=== PATIENT | male | born 1985 | race Caucasian/White ===

== ENCOUNTER 2021-04-24 14:09 | Outpatient (CLI) | payer MEDICARE, SELFPAY ==
--- NOTE | 2021-04-24 14:17 | CT_ITS ---
WS: [id number] CT CHEST WITH INTRAVENOUS CONTRAST HISTORY: MEDIASTINITIS,MEDIASTINAL MASS TECHNIQUE: Contiguous 5 mm axial imaging performed on the thorax. Coronal and sagittal reformats are submitted. All CT scans at [facility] use at least one of these dose optimization techniques: automated exposure control; mA and/or kV adjustment per patient size (includes targeted exams where dose is matched to clinical indication); or iterative reconstruction. CONTRAST: Omnipaque 300; 95 mL IV. DLP: 655.99 mGy.cm COMPARISON: 01/31/2019, 01/29/2018 Lungs and central airway: Lung volumes are decreased due to poor inspiration resulting in crowding of the lung markings. There are a few scattered granulomata. Again noted is a slightly lobulated nodule in the medial RIGHT upper lobe measuring 9.5 mm on today's examination. This nodule has very slightl y increased in size over several prior years. The perifissural nodule on the RIGHT is reidentified bu t more difficult to visualize today due to breathing motion artifact. Not significantly changed in si ze. Pleura: Normal. No pleural effusion. Heart and pericardium: Normal size heart with no pericardial effusion. Mediastinum and janiya: Dense configuration of calcifications centered in the RIGHT suprahilar and RIGH T paratracheal location. Consistent with a conglomerate calcified lymph nodes. Very similar in appear ance and distribution without progression as compared to 01/29/2018. Vessels: Normal size aortic and pulmonary artery. No coronary artery calcifications. Chest wall and lower neck: No soft tissue masses. Upper abdomen: Negative. Osseous structures: No destructive process. CT/CT chest w con* [id number] IMPRESSION: 1. Stable densely calcified RIGHT paratracheal and suprahilar mass. Probably r elated to prior granulomatous disease. 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 2. Noncalcified 9.5 mm nodule in the RIGHT upper lobe and nodule along the RIG HT superior major fissure are stable.
[2021-04-24] MEDS: iohexol 300 mg/mL 100 mL Btl IV (14:57)
== END 2021-04-24 14:10 | disposition home or self-care (01) ==
PROVIDERS: PCP Family Medicine; Visit Provider Internal Medicine Pulmonary Disease
DX: J98.59 Other diseases of mediastinum, not elsewhere classified (principal); R91.1 Solitary pulmonary nodule
CPT/HCPCS: 71260

== ENCOUNTER → 2021-09-02 07:12 | Outpatient (BNVA) | payer MEDICARE, MEDICAID, SELFPAY | PROVIDERS: PCP Family Medicine; Visit Provider Nurse Practitioner Family | DX: N41.1 Chronic prostatitis (principal); K92.1 Melena; N20.9 Urinary calculus, unspecified | CPT/HCPCS: 51741; 51798; 81003; 87086; 99203 ==

== ENCOUNTER → 2021-09-19 09:52 | Outpatient (BNVA) | payer MEDICARE, MEDICAID, SELFPAY | PROVIDERS: PCP Family Medicine; Visit Provider Surgery | DX: K62.5 Hemorrhage of anus and rectum (principal); K21.9 Gastro-esophageal reflux disease without esophagitis; K62.89 Other specified diseases of anus and rectum | CPT/HCPCS: 99203 ==

== ENCOUNTER 2021-09-24 06:00 | Outpatient (CLI) | payer MEDICARE, MEDICAID, SELFPAY | END 2021-09-24 06:01 | disposition home or self-care (01) | LOC: LAB 12-30 21:03 | PROVIDERS: PCP Family Medicine; Visit Provider Urology | DX: N20.9 Urinary calculus, unspecified | CPT/HCPCS: 81003; 99213 ==

== ENCOUNTER → 2021-09-24 15:10 | Outpatient (BNVA) | payer MEDICARE, MEDICAID, SELFPAY | PROVIDERS: PCP Family Medicine; Visit Provider Urology | DX: N20.9 Urinary calculus, unspecified (principal); N41.1 Chronic prostatitis | CPT/HCPCS: 99213 ==

== ENCOUNTER 2021-10-04 06:45 | Day surgery (SDC) | payer MEDICARE, MEDICAID, SELFPAY ==
[2021-10-02 13:42] VITALS: BMI 28.5
[2021-10-04 07:20] VITALS: BP 136/98; PULSE 81; RESP 20; TEMP 36.8; O2SAT 95
[2021-10-04] MEDS: sodium chloride 0.9% 1,000 ML 30 ML IV (07:36)
--- NOTE | 2021-10-04 08:29 | ANES.PREANE2 ---
Pre-Anesthetic Assessment Height/Weight: Height 1.83 m Weight 95.254 kg Temp Pulse Resp BP Pulse Ox 98.3 F 81 20 H 136/98 95 10/04/21 07:20 10/04/21 07:20 10/04/21 07:20 10/04/21 07:20 10/04/21 07:20 Preop Diagnosis: epigastric pain, rectal pain Operation Date: 10/04/21 08:15 Proposed Procedures p EGD and colonoscopy 36010,10955,K92.1,K62.5,K21.9(Not Applicable) - Theodore Everett DO s Colonoscopy(Not Applicable) - Theodore Everett DO Familial anesthetic complications: Hypertension on emergence Was Beta Lashaun taken within 24 hours: N/A Was Clonidine taken within 24 hours: N/A Last intake: Intake Last Liquid Date 10/03/21 Last Liquid Time 23:30 Last Solid Date 10/02/21 Last Solid Time 22:00 Social No alcohol and No tobacco Exam alert, oriented x 3, clear to auscultation bilaterally and regular rate & rhythm Airway Submandibular: within normal limits Cervical ROM: within normal limits Mallampati: Class II Dentition: chipped Pulmonary CT 05/14 CT/CT chest w con* [id number] IMPRESSION: ? 1.? Stable densely calcified RIGHT paratracheal and suprahilar mass. Probably related to prior granulomatous disease. 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 2.? Noncalcified 9.5 mm nodule in the RIGHT upper lobe and nodule along the RIGHT superior major fissure are stable. ? ? CV/HEM Hypertension Renal stones Hepatic None reported GI Gastroesophageal Reflux Disease BRBPR Metabolic None reported Musc/skel Lower Back Pain, Osteoarthritis/DJD and None reported Neuropsych None reported Anesthetic Plan ASA status: 3 Anesthesia: Anesthesia Evaluation and MAC Other: I discussed with the patient risks, goals, and benefits of MAC and general anesthesia. We discussed spectrum of MAC anesthesia including conversion to general as well as possibility of recall of intraoperative stimuli including discomfort/pain. Patient agrees to proceed with MAC. Risk of > 500 ml blood loss (7ml/kg in children): No Medications/Allergies Home Medications Medication Instructions Recorded Confirmed Last Taken Type Rollator Walker 08/23/21 09/24/21 Unknown History alprazolam 0.5 mg tablet 0.5 mg PO BEDTIME PRN tab 08/23/21 10/02/21 10/03/21 History ascorbate calcium (vitamin C) 500 500 mg PO DAILY 08/23/21 10/02/21 10/03/21 History mg tablet budesonide 0.5 mg/2 mL suspension 0.5 mg INHALATION BID 08/23/21 10/02/21 10/03/21 History for nebulization cholecalciferol (vitamin D3) 25 25 mcg PO DAILY 08/23/21 10/02/21 10/03/21 History mcg (1,000 unit) capsule famotidine 40 mg tablet 40 mg PO DAILY 08/23/21 10/02/21 10/03/21 History ferrous sulfate 325 mg (65 mg 325 mg PO BID 08/23/21 10/02/21 10/03/21 History iron) tablet fluticasone propionate 50 1 spray INTRANASAL BID 08/23/21 10/02/21 10/02/21 History mcg/actuation nasal spray,suspension hydrocodone 5 mg-acetaminophen 325 1 tab PO BID PRN 08/23/21 10/02/21 10/03/21 History mg tablet levalbuterol tartrate 45 2 inh INHALATION Q4H g 08/23/21 10/02/21 10/03/21 History mcg/actuation aerosol inhaler loratadine 10 mg tablet (Allergy 10 mg PO DAILY 08/23/21 10/02/21 10/03/21 History Relief (loratadine)) mecobalamin (vitamin B12) 5,000 5,000 mcg PO DAILY tab 08/23/21 10/02/21 10/03/21 History mcg disintegrating tablet nystatin 100,000 unit/mL oral 5 ml PO BID ml 08/23/21 10/02/21 10/03/21 History suspension omega-3 fatty acids 500 mg capsule 500 mg PO BID 08/23/21 10/02/21 10/03/21 History ondansetron HCl 4 mg tablet 4 mg PO Q6H PRN 08/23/21 10/02/21 10/03/21 History prenat.vits,norma,nbl-nypt-ifqai 1 tab PO DAILY 08/23/21 10/02/21 10/03/21 History doxycycline hyclate 100 mg capsule 100 mg PO BID #60 cap 09/02/21 10/02/2122 Rx Allergies Allergy/AdvReac Type Severity Reaction Status Date / Time albuterol Allergy Unknown Verified 10/02/21 13:30 Current Medications Generic Name Dose Route Start Last Admin Trade Name Ryanq PRN Reason Stop Dose Admin Sodium Chloride 1,000 mls @ 30 mls/hr 10/04/21 07:00 10/04/21 07:36 Sodium Chloride 0.9% IV 10/05/21 06:59 30 mls/hr .Q24H AHMET Administration PFSH Anesthesia Medical History Chronic prostatitis Dysuria Fibrosing mediastinitis Histoplasmosis Lung mass Mediastinal mass Status post extracorporeal shock wave therapy Urolithiasis Surgical History H/O endoscopy H/O left inguinal hernia repair Means teeth extracted Family History Mother No problems noted. Father No problems noted. Social History Smoking and tobacco status: never smoked Alcohol intake: never Marital status: Current occupational status: disabled History of recent travel: No Data Anesthesia Cardiac Studies: No Data to Display
--- NOTE | 2021-10-04 08:32 | W.PM.OPSUD ---
Surgery/Procedure H&P Update DATE OF PROCEDURE: October 04, 2021 DATE H&P PERFORMED: 09/19/21 CHANGES TO PREVIOUS DOCUMENTATION: none PREOP DIAGNOSIS: epigastric pain, rectal pain PLANNED PROCEDURE: Operation Date: 10/04/21 08:15 Proposed Procedures p EGD and colonoscopy [id number],K92.1,K62.5,K21.9(Not Applicable) - DO maxi Garcias Colonoscopy(Not Applicable) - Theodore Everett DO
[2021-10-04 09:17] VITALS: BP 122/93; PULSE 78; RESP 20; TEMP 36.2; O2SAT 95
[2021-10-04 09:33] VITALS: BP 118/89; PULSE 66; RESP 18; O2SAT 96
== END 2021-10-04 09:54 | disposition home or self-care (01) ==
PROVIDERS: PCP Family Medicine; Visit Provider Surgery
PROC: 0DJ08ZZ Inspection of Upper Intestinal Tract, Via Natural or Artificial Opening Endoscopic (ICD-10-PCS; CPT 43235; principal; 2021-10-04 08:15)
PROC: 0DJD8ZZ Inspection of Lower Intestinal Tract, Via Natural or Artificial Opening Endoscopic (ICD-10-PCS; CPT 45378; 2021-10-04 08:15)
DX: R10.13 Epigastric pain (principal); K62.5 Hemorrhage of anus and rectum; K29.70 Gastritis, unspecified, without bleeding; K21.9 Gastro-esophageal reflux disease without esophagitis
CPT/HCPCS: 43239; 45378; 88305; 88342; J2704; J7030

== ENCOUNTER → 2021-12-03 15:06 | Outpatient (BNVA) | payer MEDICARE, MEDICAID, SELFPAY | PROVIDERS: PCP Family Medicine; Visit Provider Urology | DX: N20.9 Urinary calculus, unspecified (principal); N41.1 Chronic prostatitis | CPT/HCPCS: 99213 ==

== ENCOUNTER → 2021-12-16 10:47 | Outpatient (BNVA) | payer MEDICARE, MEDICAID, SELFPAY | PROVIDERS: PCP Family Medicine; Visit Provider Urology | DX: N20.9 Urinary calculus, unspecified (principal); N41.1 Chronic prostatitis | CPT/HCPCS: 81003 ==

== ENCOUNTER 2021-12-19 06:00 | Outpatient (RCR) | payer MEDICARE, MEDICAID, SELFPAY | END 2021-12-20 23:59 | disposition home or self-care (01) | LOC: SOT 06:00 | PROVIDERS: PCP Family Medicine; Visit Provider Family Medicine | DX: J98.59 Other diseases of mediastinum, not elsewhere classified (principal) | CPT/HCPCS: 97167; 97530 ==

== ENCOUNTER → 2022-05-01 14:55 | Outpatient (BNVA) | payer MEDICARE, MEDICAID, SELFPAY | PROVIDERS: PCP Family Medicine; Visit Provider Urology | DX: N41.1 Chronic prostatitis (principal); R11.2 Nausea with vomiting, unspecified; N20.9 Urinary calculus, unspecified | CPT/HCPCS: 99213 ==

== ENCOUNTER 2022-06-26 06:03 | Outpatient (CLI) | payer MEDICARE, MEDICAID, SELFPAY ==
--- NOTE | 2022-06-26 | CTR_ITS ---
PROCEDURE INFORMATION: Exam: CT Chest With Contrast; Diagnostic Exam date and time: 06/26/2022 6:53 AM Age: 37 years old Clinical indication: Condition or disease; Other: Fibrosing mediatinitis TECHNIQUE: Imaging protocol: Diagnostic computed tomography of the chest with contrast. Radiation optimization: All CT scans at this facility use at least one of these dose optimization techniques: automated exposure control; mA and/or kV adjustment per patient size (includes targeted exams where dose is matched to clinical indication); or iterative reconstruction. Contrast material: OMNI 350; Contrast volume: 95 ml; Contrast route: INTRAVENOUS (IV); REPORTING DATA: Count of CT and Cardiac NM exams in prior 12 months: This patient has received 0 known CTs and 0 known cardiac nuclear medicine studies in the 12 months prior to the current study. COMPARISON: CT chest w con* [id number] 04/24/2021 2:42 PM RADIATION DOSE METRICS: Total DLP (mGy-cm): 296.81 FINDINGS: Lungs: Calcified right upper lobe granuloma. No focal airspace disease. Pleural spaces: Unremarkable. No pneumothorax. No pleural effusion. Heart: Unremarkable. No cardiomegaly. No pericardial effusion. Lymph nodes: Unremarkable. No enlarged lymph nodes. Vasculature: Unremarkable. No aortic aneurysm. Bones/joints: Unremarkable. No acute fracture. Soft tissues: Unremarkable. Other findings: Stable large calcified mediastinal les conglomerate. CT/CT chest w con* [id number] IMPRESSION: No acute findings. Stable large calcified mediastinal les conglomerate.
[2022-06-26] MEDS: iohexol 350 mg/mL 100 mL Btl IV (07:10)
== END 2022-06-26 06:04 | disposition home or self-care (01) ==
PROVIDERS: PCP Family Medicine; Referring Provider Internal Medicine Pulmonary Disease; Visit Provider Family Medicine
DX: J98.51 Mediastinitis (principal)
CPT/HCPCS: 71260; Q9967

== ENCOUNTER 2022-07-24 14:57 | Outpatient (CLI) | payer MEDICARE, MEDICAID, SELFPAY ==
[2022-07-24 17:33] LABS: Thyroid Stimulating Hormone 0.79 uIU/mL (0.27-4.20)
== END 2022-07-24 14:58 | disposition home or self-care (01) ==
PROVIDERS: PCP Family Medicine; Visit Provider Family Medicine
DX: R79.89 Other specified abnormal findings of blood chemistry (principal); Z79.899 Other long term (current) drug therapy
CPT/HCPCS: 36415; 84443; 99213

== ENCOUNTER 2022-08-12 14:00 | Outpatient (CLI) | payer MEDICARE, MEDICAID, SELFPAY | END 2022-08-12 14:01 | disposition home or self-care (01) | LOC: SLEEP 08-13 11:29 | PROVIDERS: PCP Family Medicine; Visit Provider Internal Medicine Pulmonary Disease | DX: G47.33 Obstructive sleep apnea (adult) (pediatric) (principal) | CPT/HCPCS: G0399 ==

== ENCOUNTER 2022-08-13 13:27 | Outpatient (CLI) | payer MEDICARE, MEDICAID, SELFPAY ==
[2022-08-13 14:01] LABS: ABG PCO2 35.9 mmHg (35-45); ABG PH Result 7.43 (7.35-7.45); Alveolar-Arterial Oxygen Gradi 4.6 mmHg (5-10); Arterial Blood Gas Hematocrit 48.3 % (42-52); Base Excess ABG -0.4 mmol/L (-2.0-2.0); Blood Gas Allen Test Pos; Blood Gas Operator Identificat CK; Blood Gas Sample Site Radial, left; Blood Gas Sample Type Arterial; Carboxyhemoglobin 1.5 %THgb (0.4-20.1); HCO3 ABG 23.5 mmol/L (22-26); HGB O2 Sat 92.4 % (95-100); Ionized Calcium Level - ABG 1.2 mmol/L (1.1-1.4); Methemoglobin 0.4 % (0.4-1.5); Oxygen Device ROOM AIR; Oxygen Saturation ABG 94.2; PO2 ABG 69.6 mmHg (80.0-100.0); Potassium Level - ABG 4.3 mmol/L (3.5-5.0); Total Hemoglobin 15.8 g/dL (14-18)
== END 2022-08-13 13:28 | disposition home or self-care (01) ==
LOC: RT 13:28
PROVIDERS: PCP Family Medicine; Visit Provider Internal Medicine Pulmonary Disease
DX: J98.51 Mediastinitis (principal); G47.33 Obstructive sleep apnea (adult) (pediatric)
CPT/HCPCS: 36600; 80051; 82330; 82805

== ENCOUNTER 2022-09-04 18:35 | Emergency (ER) | payer MEDICARE, MEDICAID, SELFPAY ==
[2022-09-04 18:42] VITALS: BP 125/86; PULSE 93; RESP 16; TEMP 36.6; O2SAT 97
--- NOTE | 2022-09-04 22:36 | XRR_ITS ---
PROCEDURE INFORMATION: Exam: XR Chest Exam date and time: 09/04/2022 10:52 PM Age: 37 years old Clinical indication: Chest pressure; Patient HX: Chest pain with cough. History of RT mediastinal calcified granuloma. ; Additional info: Cough congestion TECHNIQUE: Imaging protocol: Radiologic exam of the chest. Views: 1 view. COMPARISON: CT chest w con* [id number] 06/26/2022 6:53 AM FINDINGS: Lungs: See Heart/Mediastinum finding. Pleural spaces: Unremarkable. No pleural effusion. No pneumothorax. Heart/Mediastinum: Right hilar in mediastinal calcified adenopathy similar to prior exam with a right upper lobe calcified granuloma. Bones/joints: Unremarkable. XR/XR chest 1V portable [id number] IMPRESSION: 1. Negative for airspace infiltrate. 2. Right hilar in mediastinal calcified adenopathy similar to prior exam with a right upper lobe calcified granuloma.
--- NOTE | 2022-09-04 22:37 | ED_ITS ---
HPI - General Adult General: Chief complaint: General Medical Stated complaint: Chest pain Time Seen by Provider: 09/04/22 22:25 History of Present Illness: Patient presents to the ER with left-sided chest pain of epigastric area pain patient says he always has chest pain secondary to febrile media stenosis mass worse today. Had jaw pain and ear pain on his right side. With headache and dizziness. Also noted 1+ pitting edema to bilateral lower extremities. Relieving factors: none Exacerbating factors: none Associated symptoms: Reports chest pain and cough Review of Systems General: Reports: 10 or more systems reviewed and unremarkable except in HPI and below Card: Reports: chest pain PFSH ED PFSH: Medical History Chronic prostatitis Dysuria Fibrosing mediastinitis Histoplasmosis Lung mass Mediastinal mass Status post extracorporeal shock wave therapy Urolithiasis Surgical History H/O endoscopy H/O left inguinal hernia repair [place] teeth extracted Family History Mother No problems noted. Father No problems noted. Social History Smoking and tobacco status: never smoked Alcohol intake: never Marital status: Current occupational status: disabled Physical Exam Const: COMMON NORMALS: no acute distress, average body habitus, patient oriented x3, no limitations, healthy appearing, alert and well nourished HENMT: COMMON NORMALS: normocephalic, atraumatic, hearing grossly normal bilaterally, external ears normal, EAC's normal (Right TM has serous fluid behind it. Positive for eustachian tube dysfunct), Normal external nose present and moist oral mucous membranes HEAD & SCALP: normocephalic and atraumatic NOSE: Normal external nose present EXTERNAL EAR: Yes external ears normal EXTERNAL AUDITORY CANAL: EAC's normal (Right TM has serous fluid behind it. Positive for eustachian tube dysfunct) Eye: COMMON NORMALS: Equal, round and reactive pupils present, EOMs intact bilaterally, conjunctivae normal and no scleral icterus CONJUNCTIVA: Yes conjunctivae normal PUPIL: Yes Equal, round and reactive pupils present Neck/C-Spine: COMMON NORMALS: no JVD Chest: COMMONS NORMALS: normal inspection of the chest and normal palpation of entire chest wall Resp: COMMON NORMALS: normal respiratory effort, No retractions, No use of accessory muscles and clear to auscultation bilaterally AUSCULTATION: clear to auscultation bilaterally Cardio: COMMON NORMALS: no JVD, regular rate, regular rhythm, S1 normal heart sound present, S2 normal heart sound present, No gallops present (Cardio), No clicks present (Cardio), No murmurs present (Cardio) and No rub (Cardio) RATE: regular rate RHYTHM: regular rhythm HEART SOUNDS: S1 normal heart so und present and S2 normal heart sound present GI: COMMON NORMALS: Normal to inspection, nondistended, normoactive bowel sounds present, Soft to palpation, non-tender, No hepatosplenomegaly present and no masses PALPATION: Yes Soft to palpation and Yes No hepatosplenomegaly present Extremity: NARRATIVE EXTREMITY EXAM: 1+ pitting edema bilateral lower extremities. Neuro: COMMON NORMALS: patient oriented x3 SENSORIUM/ORIENTATION: Yes alert Course Vital Signs: Vital signs: Vital Signs Temperature 97.9 F 09/04/22 18:42 Pulse Rate 87 09/04/22 23:17 Respiratory Rate 16 09/04/22 23:17 Blood Pressure 136/87 09/04/22 23:17 Pulse Oximetry 94 09/04/22 23:17 Oxygen Delivery Me thod Room Air 09/04/22 23:17 MDM - General Adult Medical Decision Making Patient presents to the ER with various pains. Included chest pain epigastric pain right ear pain right eustachian tube pain. Also 1+ pitting edema bilateral lower extremities. Patient was evaluated in imaging was performed with a negative chest x-ray. Lab work was obtained which was negative. Patient will be given a diagnosis of eustachian tube dysfunction the right treated with steroids. Patient should follow-up with his PCP in approximately 7 to 10 days as needed. This thought process and results was discussed with family and they are in agreements with this. Lab Data 09/04/22 23:04 09/04/22 23:04 Radiology Impressions Chest X-Ray 09/04/22 22:36 IMPRESSION: 1. Negative for airspace infiltrate. 2. Right hilar in mediastinal calcified adenopathy similar to prior exam with a right upper lobe calcified granuloma. Laboratory Results WBC 7.3 10^3/uL (4.0-10.0) 09/04/22 23:04 RBC 5.01 10^6/uL (4.1-5.3) 09/04/22 23:04 Hgb 15.2 g/dL (11.7-16.6) 09/04/22 23:04 Hct 45.6 % (42.0-52.0) 09/04/22 23:04 MCV 91.0 fl (80-94) 09/04/22 23:04 MCH 30.3 pg (28.0-34.0) 09/04/22 23: MCHC 33.3 g/dL (30.0-36.0) 09/04/22 23:04 RDW 11.9 % (12.1-15.1) L 09/04/22 23:04 Plt Count 269 10^3/cmm (130-400) 09/04/22 23:04 MPV 10.5 fL (7.4-10.4) H 09/04/22 23:04 Neut % (Auto) 48.4 % 09/04/22 23: Lymph % (Auto) 39.2 % 09/04/22 23:04 Emmons % (Auto) 10.1 % 09/04/22 23:04 Eos % (Auto) 1.0 % 09/04/22 23: Baso % (Auto) 1.0 % 09/04/22 23:04 Neut # (Auto) 3.55 10^3/uL (1.8-7.7) 09/04/22 23:04 Lymph # (Auto) 2.9 10^3/uL (0.8-4.8) 09/04/22 23:04 Emmons # (Auto) 0.7 10^3/uL (0.2-0.9) 09/04/22 23:04 Eos # (Auto) 0.1 10^3/uL (0.0-0.8) 09/04/22 23:04 Baso # (Auto) 0.1 10^3/uL (0.0-0.1) 09/04/22 23:04 Nucleated RBC % (auto) 0 % 09/04/22 23: Nucleated RBCs # 0.0 /100WBC 09/04/22 23:04 Sodium 140 mmol/L (136-145) 09/04/22 23:04 Potassium 4.0 mmol/L (3.5-5.1) 09/04/22 23:04 Chloride 104 mmol/L (98-107) 09/04/22 23:04 Carbon Dioxide 24 mmol/L (22-29) 09/04/22 23:04 Anion Gap 16.0 (5-19) 09/04/22 23:04 BUN 7 mg/dL (6-20) 09/04/22 23:04 Creatinine 0.7 mg/dL (0.7-1.2) 09/04/22 23:04 GFR Calculation 126.2 mL/min (90-130) 09/04/22 23:04 Glucose 90 mg/dL (65-115) 09/04/22 23:04 Calculated Osmolality 288 mOsm/kg (285-295) 09/04/22 23:04 Calcium 9.3 mg/dL (8.5-10.5) 09/04/22 23:04 Total Bilirubin 0.3 mg/dL (0.15-1.2) 09/04/22 23:04 AST 23 U/L (0-40) 09/04/22 23:04 ALT 39 U/L (0-41) 09/04/22 23:04 Alkaline Phosphatase 68 U/L (40-130) 09/04/22 23:04 NT-Pro-B Natriuret Pep 36 pg/mL (0-125) 09/04/22 23:04 Total Protein 7.3 g/dL (6.6-8.7) 09/04/22 23:04 Albumin 4.2 g/dL (3.5-5.2) 09/04/22 23:04 Globulin 3.1 g/dL (1.3-4.6) 09/04/22 23:04 EKG Data EKG 1: I personally reviewed and interpreted this EKG as follows: EKG interpretation date: 09/04/22 EKG interpretation time: 21:11 Prior EKG tracings: not available for review Interpretation: EKG shows normal sinus rhythm with frequent PVCs, ventricular rate 83 beats minute, WA interval 145, QRS duration 93, QTc of 420, no ST-T wave changes Computer generated interpretation: Chest X-Ray 09/04/22 22:36 IMPRESSION: 1. Negative for airspace infiltrate. 2. Right hilar in mediastinal calcified adenopathy similar to prior exam with a right upper lobe calcified granuloma. Discharge Plan Discharge Patient Disposition: Home Clinical Impression: Acute dysfunction of right eustachian tube, Acute pain of right ear Condition: Stable Prescriptions: New prednisone 50 mg tablet 50 mg PO DAILY 5 Days Qty: 5 0RF No Action levothyroxine 25 mcg capsule 25 mcg PO DAILY hydrocodone-acetaminophen 5-325 mg tablet 1 tab PO BID PRN (Reason: Pain) alprazolam 0.5 mg tablet 0.5 mg PO BEDTIME PRN (Reason: Anxiety) budesonide 0.5 mg/2 mL suspension for nebulization 0.5 mg inhalation BID famotidine 40 mg tablet 40 mg PO DAILY ferrous sulfate 325 mg (65 mg iron) tablet 325 mg PO BID fluticasone propionate 50 mcg/actuation spray,suspension 1 spray intranasal BID Rx Instructions: administer into each nostril levalbuterol tartrate 45 mcg/actuation HFA aerosol inhaler 2 inh inhalation Q4H loratadine [Allergy Relief (loratadine)] 10 mg tablet 10 mg PO DAILY nystatin 100,000 unit/mL suspension 5 ml PO BID Rx Instructions: swish and swallow omega-3 fatty acids 500 mg capsule 500 mg PO BID ondansetron HCl 4 mg tablet 4 mg PO Q6H PRN (Reason: Nausea) prenat.vits,norma,dhl-cank-bhsqr Tablet 1 tab PO DAILY (DME) Rollator Walker 0 .Route .MEDSUPPLY mecobalamin (vitamin B12) 5,000 mcg tablet,disintegrating 5,000 mcg PO DAILY ascorbate calcium (vitamin C) 500 mg tablet 500 mg PO DAILY cholecalciferol (vitamin D3) 25 mcg (1,000 unit) capsule 25 mcg PO DAILY omeprazole 10 mg capsule,delayed release(DR/EC) 10 mg PO DAILY omeprazole 20 mg capsule,delayed release(DR/EC) 20 mg PO DAILY ondansetron 4 mg tablet,disintegrating 4 mg PO Q6H PRN (Reason: nausea and vomiting) Qty: 60 3RF doxycycline hyclate 100 mg capsule See Rx Instructions .ROUTE .COMPLEX Qty: 60 6RF Dose Instruction: take 1 capsule BY MOUTH TWICE DAILY Rx Instructions: take 1 capsule BY MOUTH TWICE DAILY Discharge Orders: Discharge ED (Routine); Ordered 06/16/23 Ordered By: Tan Becker Referrals: Heidi Giron MD [Primary Care Provider] - 1 week Patient Instructions: Earache (ED) Activity Restrictions/Additional Instructions: Please take medicine as directed. Please follow-up with PCP in approximately 7 to 10 days or as needed. Coding Level of Care Code ED Technology Sales Representative for Stephany Serrano
[2022-09-04 23:08] LABS: Basophils # 0.1 10^3/uL (0.0-0.1); Eosinophils # 0.1 10^3/uL (0.0-0.8); Hematocrit 45.6 % (42.0-52.0); Hemoglobin 15.2 g/dL (11.7-16.6); Lymphocytes # 2.9 10^3/uL (0.8-4.8); Lymphocytes % 39.2 %; Mean Corpuscular HGB Conc 33.3 g/dL (30.0-36.0); Mean Corpuscular Hemoglobin 30.3 pg (28.0-34.0); Mean Platelet Volume 10.5 fL (7.4-10.4); Monocytes # 0.7 10^3/uL (0.2-0.9); Monocytes % 10.1 %; Neutrophils # 3.55 10^3/uL (1.8-7.7); Neutrophils % 48.4 %; Nucleated Red Blood Cells % 0 %; Platelet Count 269 10^3/cmm (130-400); Red Blood Count 5.01 10^6/uL (4.1-5.3); Red Cell Distribution Width 11.9 % (12.1-15.1); White Blood Count 7.3 10^3/uL (4.0-10.0)
[2022-09-04 23:17] VITALS: BP 136/87; PULSE 87; RESP 16; O2SAT 94
[2022-09-04 23:42] LABS: Alanine Aminotransferase 39 U/L (0-41); Albumin Level 4.2 g/dL (3.5-5.2); Alkaline Phosphatase 68 U/L (40-130); Aspartate Amino Transferase 23 U/L (0-40); Blood Urea Nitrogen 7 mg/dL (6-20); Calcium 9.3 mg/dL (8.5-10.5); Carbon Dioxide 24 mmol/L (22-29); Chloride 104 mmol/L (98-107); Globulin 3.1 g/dL (1.3-4.6); Glomerular Filtration Rate 126.2 mL/min (90-130); Glucose 90 mg/dL (65-115); NT Pro B Type Natriuretic Pept 36 pg/mL (0-125); Osmolality Calculated 288 mOsm/kg (285-295); Sodium 140 mmol/L (136-145); Total Bilirubin 0.3 mg/dL (0.15-1.2); Total Protein 7.3 g/dL (6.6-8.7)
[2022-09-05 00:34] VITALS: BP 126/90; PULSE 84; RESP 16; O2SAT 94
[2022-09-05] MEDS: dexamethasone 10 mg/mL INJ IVP (01:12)
[2022-09-05 01:29] VITALS: BP 122/80; PULSE 83; RESP 17; TEMP 36.6; O2SAT 95
== END 2022-09-05 01:32 | disposition home or self-care (01) ==
PROVIDERS: Emergency Provider Emergency Medicine; PCP Family Medicine
DX: H69.81 Other specified disorders of Eustachian tube, right ear (principal); H92.01 Otalgia, right ear
CPT/HCPCS: 36415; 71045; 80053; 83880; 85025; 96374; 99284; J1100

== ENCOUNTER → 2022-09-16 10:33 | Outpatient (BNVA) | payer MEDICARE, MEDICAID, SELFPAY | PROVIDERS: PCP Family Medicine; Visit Provider Urology | DX: N41.1 Chronic prostatitis (principal); Z87.442 Personal history of urinary calculi; B39.9 Histoplasmosis, unspecified; K59.00 Constipation, unspecified; J98.59 Other diseases of mediastinum, not elsewhere classified | CPT/HCPCS: 81003; 99213 ==

== ENCOUNTER 2022-09-24 10:48 | Outpatient (CLI) | payer MEDICARE, MEDICAID, SELFPAY | END 2022-09-24 10:49 | disposition home or self-care (01) | LOC: RT 10:49 | PROVIDERS: PCP Family Medicine; Visit Provider Internal Medicine Pulmonary Disease | DX: J98.51 Mediastinitis (principal) | CPT/HCPCS: 94010; 94729 ==

== ENCOUNTER 2022-10-22 13:24 | Outpatient (CLI) | payer MEDICARE, MEDICAID, SELFPAY ==
[2022-10-22 14:53] LABS: Thyroid Stimulating Hormone 4.12 uIU/mL (0.27-4.20)
== END 2022-10-22 13:25 | disposition home or self-care (01) ==
LOC: LAB 13:27
PROVIDERS: PCP Family Medicine; Visit Provider Family Medicine
DX: R79.89 Other specified abnormal findings of blood chemistry (principal)
CPT/HCPCS: 84443

== ENCOUNTER 2023-08-26 11:47 | Outpatient (RCR) | payer MEDICARE, MEDICAID, SELFPAY | END 2023-09-20 23:59 | disposition home or self-care (01) | LOC: SST 11:47 | PROVIDERS: PCP Family Medicine; Visit Provider Internal Medicine Pulmonary Disease | DX: R13.10 Dysphagia, unspecified (principal) | CPT/HCPCS: 92610 ==

== ENCOUNTER 2023-09-08 14:41 | Outpatient (CLI) | payer MEDICARE, MEDICAID, SELFPAY ==
[2023-09-08 15:18] LABS: ABG PCO2 31.7 mmHg (35-45); ABG PH Result 7.47 (7.35-7.45); Alveolar-Arterial Oxygen Gradi 5.3 mmHg (5-10); Arterial Blood Gas Hematocrit 49.6 % (42-52); Base Excess ABG 0.4 mmol/L (-2.0-2.0); Blood Gas Operator Identificat AMH; Blood Gas Sample Site Brachial, left; Blood Gas Sample Type Arterial; Carboxyhemoglobin 1.4 %THgb (0.4-20.1); HCO3 ABG 23.1 mmol/L (22-26); HGB O2 Sat 94.6 % (95-100); Ionized Calcium Level - ABG 1.2 mmol/L (1.1-1.4); Methemoglobin 0.5 % (0.4-1.5); Oxygen Device ROOM AIR; Oxygen Saturation ABG 96.4; PO2 ABG 69.3 mmHg (80.0-100.0); PO2 FiO2 Ratio Arterial Blood 0; Potassium Level - ABG 4.5 mmol/L (3.5-5.0); Total Hemoglobin 16.2 g/dL (14-18)
== END 2023-09-08 14:42 | disposition home or self-care (01) ==
LOC: LAB 14:44
PROVIDERS: PCP Family Medicine; Visit Provider Internal Medicine Pulmonary Disease
DX: J41.8 Mixed simple and mucopurulent chronic bronchitis (principal); J96.10 Chronic respiratory failure, unspecified whether with hypoxia or hypercapnia; J98.51 Mediastinitis
CPT/HCPCS: 36600; 80051; 82330; 82805

== ENCOUNTER 2023-09-25 10:41 | Outpatient (CLI) | payer MEDICARE, MEDICAID, SELFPAY ==
--- NOTE | 2023-09-25 10:49 | FL_ITS ---
WS: [id number] FL barium swallow modifd [id number] REASON FOR EXAM: Other dysphagia FLUOROSCOPY TIME: 2min [phone] # OF SPOT FILMS: None FINDINGS: Patient was examined in the sitting upright position, lateral projection, with chin tuck. The swallow ing of barium of multiple consistencies was monitored fluoroscopically and video recorded. Detailed report of the swallowing will be rendered by the speech therapy department. FL/FL barium swallow modifd [id number] IMPRESSION: Modified barium swallow as above.
== END 2023-09-25 10:42 | disposition home or self-care (01) ==
LOC: RAD 10:41
PROVIDERS: PCP Family Medicine; Visit Provider Internal Medicine Pulmonary Disease
DX: R13.19 Other dysphagia (principal)
CPT/HCPCS: 74230; 92611

== ENCOUNTER → 2025-02-20 12:27 | Outpatient (BNVA) | payer MEDICARE, MEDICAID, SELFPAY | PROVIDERS: PCP Family Medicine; Visit Provider Family Medicine | DX: E03.9 Hypothyroidism, unspecified (principal); D50.8 Other iron deficiency anemias; B39.9 Histoplasmosis, unspecified; K21.9 Gastro-esophageal reflux disease without esophagitis; E78.1 Pure hyperglyceridemia; R77.9 Abnormality of plasma protein, unspecified; J98.51 Mediastinitis; R07.9 Chest pain, unspecified; G89.29 Other chronic pain | CPT/HCPCS: 80053; 80061; 84155; 84165; 84439; 84443; 85025 ==